=== PATIENT | female | born 1970 | race Caucasian/White ===

== ENCOUNTER 2021-07-31 09:58 | Day surgery (SDC) | payer BC ==
[2021-07-24 14:45] LABS: BASOPHILS # (AUTO) 0.1 X10'3 (0-0.2); BASOPHILS % (AUTO) 0.6 % (0-1); EOSINOPHILS # (AUTO) 0.2 X10'3 (0-0.9); EOSINOPHILS % (AUTO) 1.9 % (0-6); LYMPHOCYTES # (AUTO) 2.3 X10'3 (1.1-4.8); MEAN CORPUSCULAR HEMOGLOBIN 30.1 PG (27.0-31.0); MEAN CORPUSCULAR HGB CONC 33.8 g/dL (33.0-36.5); MEAN PLATELET VOLUME 9.3 FL (7.4-10.4); MONOCYTES # (AUTO) 0.7 X10'3 (0-0.9); MONOCYTES % (AUTO) 8.4 % (2-12); NEUTROPHILS # (AUTO) 5.3 X10'3 (1.8-7.7); NEUTROPHILS % (AUTO) 62.1 % (42-75); PRE OP HEMATOCRIT 41.3 % (35.0-45.0); PRE OP PLATELET COUNT 235 X10'3 (140-440); RED BLOOD COUNT 4.64 X10'6 (4.20-5.60); RED CELL DISTRIBUTION WIDTH 13.3 % (11.5-14.5)
[2021-07-24 15:03] LABS: ALBUMIN 3.8 G/DL (3.4-5.0); ALBUMIN/GLOBULIN RATIO 0.9 (1.1-1.5); ALKALINE PHOSPHATASE 99 IU/L (46-116); BLOOD UREA NITROGEN 19 MG/DL (7-18); BUN/CREATININE RATIO 26.8 (6.6-38.0); CALCIUM 8.7 MG/DL (8.5-10.1); CHLORIDE 104 MMOL/L (99-107); CREATININE 0.71 MG/DL (0.40-0.90); PRE OP ALT 25 U/L (30-65); PRE OP ANION GAP 5 (8-16); PRE OP AST 14 U/L (10-37); PRE OP BILIRUB, TOTAL 0.2 MG/DL (0.0-1.0); PRE OP GLUCOSE 118 MG/DL (70-104); PRE OP POTASSIUM 3.7 MMOL/L (3.4-5.1); PRE OP SODIUM 139 MMOL/L (135-145); TOTAL CARBON DIOXIDE 29.9 MMOL/L (24-32); TOTAL PROTEIN 7.9 G/DL (6.4-8.2); eGFR 86 ML/MIN
[~2021-07-31] VITALS: Ht 170.2 cm; Wt 91.0 kg
[~2021-07-31 09:58] MED LIST: ASPI-529 PO; LISI-790 PO; cefazolin/dext.iso 2gm/100ml IV ONE; famotidine 20mg tablet PO ONE; ringers solution, lacted 1,000 ML IV SCH
[2021-07-31] MEDS ORDERED: scopolamine 1mg/72 hr patch TD ONE (10:45)
[2021-07-31] MEDS ORDERED: BUPIVAcaine 0.5% inj/PF 30 ML ONE (11:12)
[2021-07-31 11:17] VITALS: BP 147/100
[2021-07-31] MEDS ORDERED: sevoflurane 250ml liquid IH ONE (12:16)
[2021-07-31] MEDS ORDERED: fentaNYL/PF 50MCG/1 ML 2ML syringe ONE (12:24)
[2021-07-31] MEDS ORDERED: midazolam 1 mg/ML 2ml injection ONE (12:24)
[2021-07-31] MEDS ORDERED: propofol inj 20 ML IV ONE (12:26)
[2021-07-31] MEDS ORDERED: ondansetron/PF 4mg/2ml inj IV PRN (12:55)
[2021-07-31] MEDS ORDERED: meperidine/PF 25mg/ml syringe IV PRN ×3 (12:55)
[2021-07-31] MEDS ORDERED: morphine 2 MG/ML inj. syringe IV PRN (12:55)
[2021-07-31] MEDS ORDERED: proCHLORperazine 10 MG/2 ml inj IV PRN (12:55)
[2021-07-31] MEDS ORDERED: morphine 4 MG/ML inj SYRINge IV PRN (12:55)
[2021-07-31] MEDS ORDERED: ringers solution, lacted 1,000 ML IV SCH (12:55)
[2021-07-31] MEDS ORDERED: dexamethasone sod phosphate 4mg/ml inj. ONE (13:09)
[2021-07-31] MEDS ORDERED: ondansetron/PF 4mg/2ml inj ONE (13:10)
[2021-07-31 13:15] VITALS: BP 164/93
--- NOTE | 2021-07-31 13:15 | NUR ---
ADMITTED TO PACU FROM OR ACCOMPANIED BY ANESTHESIA. INTIAL PHYSICAL ASSESSMENT DONE AND RECORDED. REPORT RECEIVED FROM ANESTHESIA.
[2021-07-31 13:25] VITALS: BP 155/90
[2021-07-31] MEDS ORDERED: HYDROcodone/acetaminophen 5mg/325mg tablet PO PRN (13:30)
[2021-07-31 13:35] VITALS: BP 150/83
[2021-07-31 13:45] VITALS: BP 160/80
[2021-07-31 13:55] VITALS: BP 161/81
--- NOTE | 2021-07-31 14:15 | NUR ---
DISCHARGE CRITERIA MET, DISCHARGE INSTRUCTIONS GIVEN, DEMONSTRATES VERBAL UNDERSTANDING. DISCHARGED HOME IN GOOD CONDITION.
== END 2021-07-31 14:15 | disposition home or self-care (01) ==
LOC: PAS 09:58
PROVIDERS: ATTEND Surgery
DX: S80.852A Superficial foreign body, left lower leg, initial encounter (principal); I10 Essential (primary) hypertension; E66.9 Obesity, unspecified; Z68.31 Body mass index [BMI] 31.0-31.9, adult; Z20.822 Contact with and (suspected) exposure to COVID-19; Z79.899 Other long term (current) drug therapy; Z79.82 Long term (current) use of aspirin; Z90.49 Acquired absence of other specified parts of digestive tract; Z98.890 Other specified postprocedural states; Z83.3 Family history of diabetes mellitus; Z80.1 Family history of malignant neoplasm of trachea, bronchus and lung; Z80.0 Family history of malignant neoplasm of digestive organs; Z82.3 Family history of stroke; Z82.61 Family history of arthritis; X58.XXXA Exposure to other specified factors, initial encounter; Y93.9 Activity, unspecified; Y92.89 Other specified places as the place of occurrence of the external cause; Y99.8 Other external cause status
CPT/HCPCS: 10121; 36415; 73590; 76000; 80053; 82948; 85025; 93005; J1100; J2250; J2405; J2704; J3010; U0003; U0005; Z7506; Z7512; A4215; A4618; A7000; J7120

== ENCOUNTER 2021-08-07 10:23 | Emergency (ER) | payer BC ==
[~2021-08-07] VITALS: Ht 170.2 cm; Wt 92.3 kg
[~2021-08-07 10:23] MED LIST changes: -cefazolin/dext.iso 2gm/100ml IV ONE; -famotidine 20mg tablet PO ONE; -ringers solution, lacted 1,000 ML IV SCH
[2021-08-07 10:26] VITALS: BP 194/100
[2021-08-07] MEDS ORDERED: ibuprofen 200mg tablet PO ONE (12:55)
[2021-08-07] MEDS ORDERED: acetaminophen 325mg tablet PO ONE (12:55)
== END 2021-08-07 13:12 | disposition home or self-care (01) ==
LOC: ER 10:23
DX: M79.605 Pain in left leg (principal); R51.9 Headache, unspecified; Z86.73 Personal history of transient ischemic attack (TIA), and cerebral infarction without residual deficits; Z79.82 Long term (current) use of aspirin; Z79.899 Other long term (current) drug therapy
CPT/HCPCS: 93971; 99284